=== PATIENT | female | born 1945 | race Two or more races ===

== ENCOUNTER → 2020-02-20 | Emergency (ER) | payer OTHER ==
[~2020-02-20] VITALS: Ht 152.4 cm; Wt 68.9 kg
[~2020-02-20] MED LIST: AMLODIPINE-OLM1 EAC2; DUI500 PO; ELIQUIS2.5 MG PO; LIPITOR20 MG PO; PERCOCET 5-3251 EACH PO; ZESTORETIC 20-1 EACH
== END | disposition home or self-care (01) ==
LOC: ER 20:38
DX: M25.561 Pain in right knee (principal); M23.206 Derangement of unspecified meniscus due to old tear or injury, right knee

== ENCOUNTER 2020-03-30 08:00 | Inpatient (IN) | payer OTHER ==
[~2020-03-30] VITALS: Ht 157.5 cm; Wt 69.4 kg
[~2020-03-30 08:00] MED LIST changes: -DUI500 PO; -ELIQUIS2.5 MG PO; -LIPITOR20 MG PO; -PERCOCET 5-3251 EACH PO
[2020-03-30] MEDS ORDERED: LIPITOR20 MG PO (10:57)
[2020-04-07] MEDS ORDERED: DUI500 PO (15:45)
[2020-04-07] MEDS ORDERED: PERCOCET 5-3251 EACH PO (15:45)
[2020-04-07] MEDS ORDERED: ELIQUIS2.5 MG PO (15:45)
== END 2020-04-07 18:30 | DRG 470 ==
LOC: O/R 04-05 05:37 → SURH 04-05 05:37
PROVIDERS: ADMIT Orthopaedic Surgery; ATTEND Orthopaedic Surgery
PROC: 0MNN0ZZ Release Right Knee Bursa and Ligament, Open Approach (ICD-10-PCS; 2020-04-05)
PROC: 0SRC0J9 Replacement of Right Knee Joint with Synthetic Substitute, Cemented, Open Approach (ICD-10-PCS; principal; 2020-04-05 13:00)
DX: M17.11 Unilateral primary osteoarthritis, right knee (principal); M22.11 Recurrent subluxation of patella, right knee; D64.9 Anemia, unspecified; I10 Essential (primary) hypertension; E66.09 Other obesity due to excess calories; Z20.828 Contact with and (suspected) exposure to other viral communicable diseases

== ENCOUNTER 2021-03-02 20:17 | Emergency (ER) | payer OTHER ==
[~2021-03-02] VITALS: Ht 157.5 cm; Wt 65.8 kg
[~2021-03-02 20:17] MED LIST changes: +DUI500 PO; +ELIQUIS2.5 MG PO; +LIPITOR20 MG PO; +PERCOCET 5-3251 EACH PO
[2021-03-02] MEDS ORDERED: NAPR500T14 PO (23:20)
[2021-03-02] MEDS ORDERED: ORPHENADRI30 MG/1 M1 IJ (23:20)
== END 2021-03-02 23:22 | disposition home or self-care (01) ==
LOC: ER 20:17
DX: M54.41 Lumbago with sciatica, right side (principal); M47.897 Other spondylosis, lumbosacral region

== ENCOUNTER 2023-11-07 20:20 | Emergency (ER) | payer OTHER ==
[~2023-11-07] VITALS: Ht 157.5 cm; Wt 67.1 kg
[~2023-11-07 20:20] MED LIST changes: +NAPR500T14 PO; +ORPHENADRI30 MG/1 M1 IJ
[2023-11-07] MEDS ORDERED: LACTOBACILLUS ACIDOPHILUS 1 CAP CAP PO ONE (21:15)
[2023-11-07] MEDS ORDERED: ONDANSETRON HCL 2 MG/ML VIAL IV ONE (21:15)
[2023-11-07] MEDS ORDERED: 0.9 % SODIUM CHLORIDE 500 ML IV ONE (21:15)
[2023-11-07 21:55] LABS: HEMATOCRIT 31.2 % (36.0-45.00); HEMOGLOBIN 10.1 g/dL (12.0-15.00); MEAN CELL VOLUME 78.1 fL (80.00-100.00); MEAN CORPUSCULAR HEMOGLOBIN 25.4 pg (27.00-32.0); MEAN CORPUSCULAR HGB CONC 32.5 g/dl (32.0-36.0); PLATELET COUNT 399 K/uL (150-450); RED CELL DISTRIBUTION WIDTH 14.3 % (11.5-14.5)
[2023-11-07 22:22] LABS: ALBUMIN 2.9 gm/dL (3.4-5.0); BILIRUBIN TOTAL 0.27 mg/dL (0.3-1.2); CALCIUM 9.1 mg/dL (8.5-10.1); CREATININE SERUM 1.02 mg/dL (0.55-1.02); GFR 52.55; GLOBULINA 4.9 G/DL (2.4-3.5); POTASSIUM 3.9 mEq/L (3.5-5.1); TOTAL PROTEIN 7.8 gm/dL (6.4-8.2)
[2023-11-07 23:26] LABS: PH,URINE 5.5 (5.0-8.0); URINE APPEARANCE Clear; URINE BILIRRUBIN Negative (NEGATIVE); URINE BLOOD Negative; URINE COLOR Yellow; URINE GLUCOSE Negative (NEGATIVE); URINE LEUKOCYTE Small; URINE NITRATE Positive; URINE PROTEIN Negative (NEGATIVE); URINE UROBILINOGEN 0.2 E.U./dl
[2023-11-07 23:33] LABS: URINE BACTERIA 4365.7 uL (0.0-1933); URINE EPITHELIAL CELLS 16.3 uL (0.0-38.8); URINE WBC 133.3 uL (0.0-23.2)
[2023-11-07] MEDS ORDERED: ONDANSETRON ODT8 MG PO (23:54)
[2023-11-07] MEDS ORDERED: PEPCID AC20 MG PO (23:54)
[2023-11-08 00:22] LABS: URINE RBC 1.2 uL (0.0-20.8)
== END 2023-11-08 00:10 | disposition home or self-care (01) ==
LOC: ER 20:21
PROVIDERS: Nurse Practitioner Family
DX: R10.84 Generalized abdominal pain (principal); I10 Essential (primary) hypertension; E78.49 Other hyperlipidemia; R11.10 Vomiting, unspecified; R19.7 Diarrhea, unspecified; Z20.822 Contact with and (suspected) exposure to COVID-19
CPT/HCPCS: 36415; 96365; 96366; 99282; J2405; J7042